=== PATIENT | female | born 1960 | race Caucasian/White ===

== ENCOUNTER 2019-09-10 11:24 | Emergency (ER) | payer OTHER ==
[~2019-09-10] VITALS: Ht 165.1 cm; Wt 61.2 kg
[~2019-09-10 11:24] MED LIST: AMOXICILLIN500 M1 PO; DOXYCYCLINE 10100 MG PO; EFFEXOR37.5 MG PO; [UNRECOGNIZED DRUG - OTHER]
[2019-09-10] MEDS ORDERED: NORCO 5-325 TA1 EAC1 PO (12:59)
[2019-09-10 13:28] VITALS: BP 129/81
== END 2019-09-10 13:29 | disposition home or self-care (01) ==
LOC: M.ERS 11:24
DX: S82.62XA Displaced fracture of lateral malleolus of left fibula, initial encounter for closed fracture (principal); Z90.49 Acquired absence of other specified parts of digestive tract; Z90.721 Acquired absence of ovaries, unilateral; X50.1XXA Overexertion from prolonged static or awkward postures, initial encounter; Y93.89 Activity, other specified; Y92.89 Other specified places as the place of occurrence of the external cause; Y99.8 Other external cause status